=== PATIENT | female | born 1945 | race Caucasian/White ===

== ENCOUNTER 2017-06-03 16:08 | Inpatient (IN) | payer MEDICARE, OTHER ==
[~2017-06-03] VITALS: Ht 162.6 cm; Wt 67.1 kg
[2017-06-03] MEDS ORDERED: MELA10CA PO (16:41)
[2017-06-03] MEDS ORDERED: VALS1TAB71 PO (16:55)
[2017-06-03] MEDS ORDERED: ASPI81TA31 PO (16:55)
[2017-06-03] MEDS ORDERED: PYRI100T6 PO (16:55)
[2017-06-03] MEDS ORDERED: LEVE500T20 PO (16:55)
[2017-06-03] MEDS ORDERED: OMEG1CAP40 PO (16:55)
[2017-06-03] MEDS ORDERED: SIMV10TA6 PO (16:55)
[2017-06-03] MEDS ORDERED: BUPR-51 PO (16:55)
[2017-06-03] MEDS ORDERED: CHOL200026 PO (16:55)
[2017-06-03] MEDS ORDERED: RED600TA PO (16:55)
[2017-06-03] MEDS ORDERED: VORT10TA PO (16:55)
[2017-06-03 17:01] LABS: BASOPHILS # (AUTO) 0.1 K/uL (0.0-8.0); EOSINOPHILS # (AUTO) 0.1 K/uL (0.0-0.7); EOSINOPHILS % (AUTO) 1.5 % (0.0-7.0); HEMATOCRIT 40.8 % (37-47); HEMOGLOBIN 13.5 G/DL (12.0-16.0); LYMPHOCYTES # (AUTO) 2.1 K/UL (0.8-4.8); LYMPHOCYTES % (AUTO) 32.3 % (20.5-51.5); MEAN CORPUSCULAR HEMOGLOBIN 30.6 UUG (27.0-31.0); MEAN CORPUSCULAR HGB CONC 33 g/dL (32.0-37.0); MEAN CORPUSCULAR VOLUME 92.4 FL (81.0-99.0); MONOCYTES # (AUTO) 0.4 K/UL (0.1-1.30); MONOCYTES % (AUTO) 5.6 % (0.0-11.0); NEUTROPHILS # (AUTO) 3.9 K/UL (1.8-8.9); NEUTROPHILS % (AUTO) 59.6 % (38.5-71.5); PLATELET COUNT (AUTO) 281 K/UL (150-450); RED BLOOD CELL COUNT(AUTO) 4.42 MIL/UL (4.2-5.4); WHITE BLOOD COUNT (AUTO) 6.6 K/UL (4.0-11.2)
[2017-06-03 17:09] LABS: CARBON DIOXIDE 32 mmol/L (21-32); CHLORIDE 104 mmol/L (98-107); CREATININE 0.8 mg/dL (0.6-1.3); GLUCOSE 148 mg/dL (74-106); POTASSIUM 3.7 mmol/L (3.5-5.1); UREA NITROGEN, BLOOD 18 mg/dL (7-18)
--- NOTE | 2017-06-03 17:11 | NUR ---
Pt is calm and cooperative at this time, resting in gurney with daughter at bedside.
[2017-06-03 17:15] LABS: ETHANOL < 3 MG/DL (0-0)
[2017-06-03 17:16] LABS: ALANINE AMINOTRANSFERASE 49 U/L (14-59); ALKALINE PHOSPHATASE 61 U/L (50-136); ASPARTATE AMINOTRANSFERASE 32 U/L (15-37); BILIRUBIN,DIRECT 0.1 mg/dL (0.0-0.2); BILIRUBIN,TOTAL 0.4 mg/dL (0.2-1.0); TOTAL PROTEIN, SERUM 7.2 g/dL (6.4-8.2)
[2017-06-03 17:17] LABS: ACETAMINOPHEN < 2.0 ug/mL (10-30)
[2017-06-03 17:36] LABS: *BILIRUBIN,URIN NEGATIVE (NEGATIVE); *BLOOD, URINE NEGATIVE (NEGATIVE); *CLARITY,URINE CLEAR (CLEAR); *COLOR,URINE STRAW (YELLOW); *KETONES,URINE NEGATIVE (NEGATIVE); *PROTEIN,URINE NEGATIVE (NEGATIVE); *UROBILINOGEN,URINE 0.2 E.U./dl (NORMAL); LEUKOCYTE ESTERASE ,URINE TRACE (NEGATIVE); NITRITE, URINE NEGATIVE (NEGATIVE); UGLUCOSE NEGATIVE (NEGATIVE)
[2017-06-03 17:42] LABS: *AMPHETAMINE, URINE NEGATIVE (NEGATIVE); *BARBITURATE, URINE NEGATIVE (NEGATIVE); *CANNABINOID, URINE NEGATIVE (NEGATIVE); *COCCAINE, URINE NEGATIVE (NEGATIVE); *OPIATE, URINE NEGATIVE (NEGATIVE); *PHENCYCLIDINE SCREEN,URINE NEGATIVE (NEGATIVE)
[2017-06-03 17:44] LABS: BACTERIA,URINE FEW /HPF (NONE SEEN); RBC,URINE 0-3 /HPF (0-3); SQUAMOUS EPITHELIAL CELL,UR FEW /HPF (NONE SEEN)
--- NOTE | 2017-06-03 18:16 | NUR ---
Pt resting in gurney with NAD noted, dinner tray provided, family remains at bedside, Adam Santa notified for psych eval.
--- NOTE | 2017-06-03 18:53 | NUR ---
Adam Santa at bedside for psych eval.
--- NOTE | 2017-06-03 20:01 | NUR ---
Pt. admitted to [facility]HU , under care of Dr. LOPEZ Belongs List completed. PT ON 72 HOUR HOLD ON 06/03/17 @ 3759.
[2017-06-03] MEDS ORDERED: LORAZEPAM 0.5 MG TABLET PO PRN (20:30)
[2017-06-03] MEDS ORDERED: MAG HYDROX/AL HYDROX/SIMETH 30 ML LIQUID UDC PO PRN (20:30)
[2017-06-03] MEDS ORDERED: MAGNESIUM HYDROXIDE 30 ML LIQUID UDC PO PRN (20:30)
[2017-06-03] MEDS ORDERED: ZOLPIDEM 5 MG TABLET PO PRN (20:30)
[2017-06-03] MEDS ORDERED: ACETAMINOPHEN 325 MG TABLET PO PRN (20:30)
[2017-06-03 21:38] VITALS: BP 142/83
--- NOTE | 2017-06-03 22:31 | NUR ---
AT APPROX 2015, ADMITTED 71 YEARS OLD FEMALE TO [facility] ON A 5150 HOLD FOR GD. PATIENT IS FROM [place], BUT HAS BEEN LIVING WITH DAUGHTER IN [place], [place]. Pt. was brought in by daughter to the ER. According to daughter, patient has been unable to care for self and has been having paranoid delusion: refusing to accept care from daughter, believes that the house has being invaded. Patient thinks she has a history of seizure disorder but has never had a seizure and takes medications for seizure according to the patient. Patient also has multiple other disorganized thoughts. Patient denies suicidal ideation. She denies HI, denies hearing voices. Pt was noted A/O x 3. she was calm and cooperative with admission process. however, she stated that "my daughter is controlling me and I don't want her to know anything about me." Hold started today at 1900 and will end on 06/06/17 at 1900. skin assessment: warm dry and intact. patient stated that she has a history od depression and HTN. She stated that she has and advance Directives, but it is in [facility] and wants to be Full code. will continue to monitor.
[2017-06-04 00:29] VITALS: BP 142/83
[2017-06-04 07:30] VITALS: BP 134/74
[2017-06-04] MEDS ORDERED: INFLUENZA VACCINE 2017-2018 0.5 ML DISP.SYRIN IM ONE (10:00)
[2017-06-04] MEDS: HYDROCHLOROTHIAZIDE 12.5 MG CAPSULE PO SCH (11:15)
[2017-06-04] MEDS: LEVETIRACETAM 500 MG TABLET PO SCH ×2 (11:30→20:26)
[2017-06-04] MEDS: ASPIRIN 81 MG TAB.CHEW PO SCH (11:30)
[2017-06-04] MEDS: CEPHALEXIN MONOHYDRATE 500 MG CAPSULE PO SCH ×3 (11:30→21:47)
[2017-06-04] MEDS: VALSARTAN 160 MG TABLET PO SCH (11:34)
[2017-06-04] MEDS: OMEGA-3 FATTY ACIDS/FISH OIL CAPSULE PO SCH (11:34)
[2017-06-04] MEDS: VENLAFAXINE XR 37.5 MG CAP.SR.24H PO SCH (14:00)
[2017-06-04 15:20] VITALS: BP 125/72
[2017-06-04 20:09] VITALS: BP 101/58
[2017-06-04] MEDS: QUETIAPINE FUMARATE 25 MG TABLET PO SCH (20:26)
[2017-06-05] MEDS: CEPHALEXIN MONOHYDRATE 500 MG CAPSULE PO SCH ×3 (05:59→21:16)
--- NOTE | 2017-06-05 06:46 | NUR ---
PATIENT SLEPT 9 HRS THROUGH THE NIGHT. SHE WAS NOTED WITH DEPRESSED MOOD. MEDICATION COMPLIANT DURING THE SHIFT. NO PRNs GIVEN DURING THE SHIFT.
[2017-06-05 07:30] VITALS: BP 121/70
--- NOTE | 2017-06-05 07:44 | NUR ---
PT IS AT NURSES STATION AT THIS TIME STATING SHE IS TO BE RELEASED TODAY. PT STATED SHE HEARD HER DAUGHTER AND SON IN LAW "OUTSIDE" BECAUSE "THE HOSPITAL CALLED THEM LAST NIGHT TO COME TODAY AND THEY'RE HERE TO PICK ME UP." EXPLAINED TO PT THAT NOBODY CALLED HER FAMILY LAST NIGHT, THEIR IS NO ORDER FOR RELEASE TODAY, AND HER FAMILY IS NOT HER TO PICK HER UP. PT APPEARS TO BE VERY CONFUSED AT THIS TIME.
[2017-06-05] MEDS: ASPIRIN 81 MG TAB.CHEW PO SCH (08:53)
[2017-06-05] MEDS: LEVETIRACETAM 500 MG TABLET PO SCH ×2 (08:53→20:15)
[2017-06-05] MEDS: CHOLECALCIFEROL 1,000 UNIT TABLET PO SCH (08:54)
[2017-06-05] MEDS: VENLAFAXINE XR 37.5 MG CAP.SR.24H PO SCH (08:54)
[2017-06-05] MEDS: OMEGA-3 FATTY ACIDS/FISH OIL CAPSULE PO SCH (08:54)
[2017-06-05] MEDS: VALSARTAN 160 MG TABLET PO SCH (08:55)
[2017-06-05] MEDS: HYDROCHLOROTHIAZIDE 12.5 MG CAPSULE PO SCH (08:55)
[2017-06-05] MEDS: PYRIDOXINE HCL 100 MG TABLET PO SCH (09:00)
[2017-06-05] MEDS ORDERED: Medication Not On Formulary EA (Omega-3 Fatty Acids/Fish Oil (Omega 3 1,000 Mg Softgel) PO SCH (09:00)
[2017-06-05 15:21] VITALS: BP 126/70
[2017-06-05] MEDS: QUETIAPINE FUMARATE 25 MG TABLET PO SCH (20:16)
[2017-06-05] MEDS: SIMVASTATIN 10 MG TABLET PO SCH (20:16)
[2017-06-05 20:21] VITALS: BP 132/74
[2017-06-06] MEDS: CEPHALEXIN MONOHYDRATE 500 MG CAPSULE PO SCH ×3 (05:42→22:05)
[2017-06-06 07:30] VITALS: BP 144/78
[2017-06-06] MEDS: OMEGA-3 FATTY ACIDS/FISH OIL CAPSULE PO SCH (08:49)
[2017-06-06] MEDS: LEVETIRACETAM 500 MG TABLET PO SCH ×2 (08:49→20:20)
[2017-06-06] MEDS: HYDROCHLOROTHIAZIDE 12.5 MG CAPSULE PO SCH (08:49)
[2017-06-06] MEDS: VENLAFAXINE XR 37.5 MG CAP.SR.24H PO SCH (08:49)
[2017-06-06] MEDS: ASPIRIN 81 MG TAB.CHEW PO SCH (08:49)
[2017-06-06] MEDS: VALSARTAN 160 MG TABLET PO SCH (08:49)
[2017-06-06] MEDS: CHOLECALCIFEROL 1,000 UNIT TABLET PO SCH (08:50)
[2017-06-06] MEDS: PYRIDOXINE HCL 100 MG TABLET PO SCH (08:50)
--- NOTE | 2017-06-06 11:37 | NUR ---
Initial discharge instructions: Pt was residing with her daughter,Madonna [[address],[place], [place],[address]].Per pt,she would like to move in with her son Barrington in [place].Spoke with pt's daughter,Madonna [phone] who reported she may not return to her home her brothers.Madonna reported the pt will have to be discharged to an [facility].She reported the pt's sister,does have [facility] ([place]) for finances and health.SW will speak with pt,family,and MD regarding appropriate discharge planning.SW will form a safe and proper discharge.
[2017-06-06 16:00] VITALS: BP 141/77
--- NOTE | 2017-06-06 16:04 | NUR ---
UR Note: Spoke with Bridgett AVILES with [facility] [[phone] Ext. [phone]] who stated the patient has been authorized through 06/08/17, with review due on 06/08/17. AUTHORIZATION# [id number] .
[2017-06-06] MEDS: QUETIAPINE FUMARATE 25 MG TABLET PO SCH (20:20)
[2017-06-06] MEDS: SIMVASTATIN 10 MG TABLET PO SCH (20:20)
[2017-06-06 20:33] VITALS: BP 114/66
[2017-06-07] MEDS: CEPHALEXIN MONOHYDRATE 500 MG CAPSULE PO SCH ×3 (06:28→21:31)
[2017-06-07 07:30] VITALS: BP 120/70
[2017-06-07] MEDS: OMEGA-3 FATTY ACIDS/FISH OIL CAPSULE PO SCH (08:38)
[2017-06-07] MEDS: VENLAFAXINE XR 37.5 MG CAP.SR.24H PO SCH (08:38)
[2017-06-07] MEDS: CHOLECALCIFEROL 1,000 UNIT TABLET PO SCH (08:38)
[2017-06-07] MEDS: HYDROCHLOROTHIAZIDE 12.5 MG CAPSULE PO SCH (08:38)
[2017-06-07] MEDS: ASPIRIN 81 MG TAB.CHEW PO SCH (08:38)
[2017-06-07] MEDS: LEVETIRACETAM 500 MG TABLET PO SCH ×2 (08:38→20:49)
[2017-06-07] MEDS: PYRIDOXINE HCL 100 MG TABLET PO SCH (08:39)
[2017-06-07] MEDS: VALSARTAN 160 MG TABLET PO SCH (08:39)
[2017-06-07 16:26] VITALS: BP 130/71
[2017-06-07 20:47] VITALS: BP 109/60
[2017-06-07] MEDS: SIMVASTATIN 10 MG TABLET PO SCH (20:49)
[2017-06-07] MEDS: QUETIAPINE FUMARATE 25 MG TABLET PO SCH (20:49)
[2017-06-08] MEDS: CEPHALEXIN MONOHYDRATE 500 MG CAPSULE PO SCH ×2 (06:17→13:22)
[2017-06-08 07:30] VITALS: BP 112/66
[2017-06-08] MEDS: ASPIRIN 81 MG TAB.CHEW PO SCH (09:42)
[2017-06-08] MEDS: OMEGA-3 FATTY ACIDS/FISH OIL CAPSULE PO SCH (09:42)
[2017-06-08] MEDS: VENLAFAXINE XR 37.5 MG CAP.SR.24H PO SCH (09:42)
[2017-06-08] MEDS: HYDROCHLOROTHIAZIDE 12.5 MG CAPSULE PO SCH (09:42)
[2017-06-08] MEDS: CHOLECALCIFEROL 1,000 UNIT TABLET PO SCH (09:42)
[2017-06-08] MEDS: LEVETIRACETAM 500 MG TABLET PO SCH (09:42)
[2017-06-08] MEDS: VALSARTAN 160 MG TABLET PO SCH (09:43)
[2017-06-08] MEDS: PYRIDOXINE HCL 100 MG TABLET PO SCH (09:43)
--- NOTE | 2017-06-08 11:07 | NUR ---
DC Note: Patient will be discharged to her daughters home [[address], [place], [address]] via private transportation at 12:00 pm. Spoke with patients daughter, Madonna [phone] who is aware and agreeable with discharge plans. Patient is aware and agreeable with discharge plans. Patient was provided with a list of contracted psychiatric referrals that included, [phone], [phone], [phone], and . Patient was also provided with outpatient counselors that included Ephraim Andujar (Clinical Medical Review Coordinator) , Anthony Corona (BATCH DUMPER) [phone], Lydia Spangler (ARTIFICIAL CANDY MAKER) [phone], Priscilla Alan (ARTIFICIAL CANDY MAKER) [phone], and Evelyn Ding (Clinical Medical Review Coordinator) . Patient was provided with a brief substance abuse intervention and referred to [facility] [phone], [facility] [phone] and [facility] [phone]. Patient was encouraged tp present at [facility] [[address] [place] [address] ] at 9:00 am on 06/09/17 for intake screening if needed. 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 A home health order was faxed to Carli at [facility] [ / Fx:[phone]].
[2017-06-08 15:31] VITALS: BP 114/59
--- NOTE | 2017-06-08 16:30 | NUR ---
GPS: Nursing Notes: Discharge Notes: Patient is awake and responding to her name, cooperative and pleasant with staff, following staff directions, compliant with her medications, denies any SI/HI, denies AH/VH, denies any pain or discomfort, denies any SOB, ambulatory, self care, discharge home with her daughter [place] [address] [place] [address], instructions and prescriptions given to patient, picked up by Madonna and transported home via private vehicle, took all her belonging with her. asphalt plant worker spoke with patients daughter, Madonna [phone] who is aware and agreeable with discharge plans. Patient is aware and agreeable with discharge plans. Patient was provided with a list of contracted psychiatric referrals that included, [phone], [phone], [phone], and . Patient was also provided with outpatient counselors that included Ephraim Andujar (Clinical Boat Puller) , Anthony Corona (FISCAL CLERK) [phone], Lydia Spangler ([facility]) [phone], Priscilla Alan (HOP TRAINER) [phone], and Evelyn Ding (Clinical Boat Puller) . Patient was provided with a brief substance abuse intervention and referred to [facility] [phone], [facility] [phone]-, and [facility] [phone]. Patient was encouraged tp present at [facility] [[address] [place] [address] ] at 9:00 am on 06/09/17 for intake screening if needed. 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 A home health order was faxed to Carli at [facility] [ / Fx:[phone]].
== END 2017-06-08 16:30 | disposition home or self-care (01) | DRG 885 ==
LOC: ER 16:08 → GPS 19:59
PROVIDERS: ADMIT Psychiatry & Neurology Psychiatry; ATTEND Internal Medicine
DX: F33.3 Major depressive disorder, recurrent, severe with psychotic symptoms (principal); G40.909 Epilepsy, unspecified, not intractable, without status epilepticus; N39.0 Urinary tract infection, site not specified; F23 Brief psychotic disorder; E78.5 Hyperlipidemia, unspecified; I10 Essential (primary) hypertension; R73.9 Hyperglycemia, unspecified
CPT/HCPCS: 36415; 80307; 84443; 85025; 93005; A4663; G0480; G0480-TC